=== PATIENT | female | born 1985 | race Caucasian/White ===

== ENCOUNTER → 2017-12-29 | Day surgery (SDC) | payer OTHER ==
[~2017-12-29] MED LIST: HYDROCODONE-AP1 EAC6 PO; JOLIVETTE0.35 MG PO; LEVOXYL25 MCG PO; RANITIDINE 150150 M1 PO; ULTRAM 50MG TAB50 MG PO
[2017-12-29 11:24] LABS: HEMATOCRIT 42.5 % (37.0-47.0); HEMOGLOBIN 14.4 gm/dL (12.0-15.0)
[2017-12-29 11:37] LABS: ALBUMIN 4.3 g/dL (3.4-5.0); DIRECT BILIRUBIN 0.3 mg/dL (<0.1-0.3); TOTAL BILIRUBIN 1.4 mg/dL (<0.1-1.0)
--- NOTE | 2018-01-10 14:36 | OP ---
[address] [address] OPERATIVE REPORT Name: GABRIELA PEREZ Room: [facility]#: [id number] Admission: 12/29/17 Attend Phys: Marija Rogers DO Discharge: Date of : 89 Report #: [id number] THIS REPORT FOR: //name// CC: Marija Chau Primary Care Physician DICTATED BY: Rob Portillo DO DATE OF SERVICE: 12/29/2017 PREOPERATIVE DIAGNOSES: Cholelithiasis and elevated liver function tests and bilirubin. POSTOPERATIVE DIAGNOSES: Chronic cholecystitis, cholelithiasis and elevated liver function tests and bilirubin. SURGEON: Marija Rogers DO CO-SURGEON: Arnold Portillo, PGY-3. SUBMARINE OPERATOR: None. OPERATIONS PERFORMED: Laparoscopic cholecystectomy with intraoperative cholangiogram and interpretation along with liver biopsy. ANESTHESIA TYPE: General and local. ESTIMATED BLOOD LOSS: 20 mL. SPECIMENS: Gallbladder and contents and liver biopsy. COMPLICATIONS: None. COMMENTS: The patient had a rather aberrant anatomy with the cystic artery and Calot node coursing on the lateral side of the cystic triangle. She also had a large aberrant artery that was coursing below the gallbladder. HISTORY OF PRESENT ILLNESS: The patient is a very pleasant 32-year-old female who was in her period at which point she began to have some upper abdominal pain. The patient had extensive workup and was noted to have some elevated LFTs and also had elevated bilirubin with cholelithiasis. Her pain was periodical in nature and would last for short periods of time and then will resolve. Most of her discomfort is localized to her upper abdomen. The patient was seen in the office and it was recommended that she have laparoscopic cholecystectomy for her symptomatic cholelithiasis [place] [address] OPERATIVE REPORT Name: GABRIELA PEREZ Room: [facility].#: [id number] Admission: 12/29/17 Attend Phys: Marija Rogers DO Discharge: Date of : 89 Report #: [id number] that we would recommend her having an intraoperative cholangiogram with elevated bilirubin as well as liver biopsies for the elevated transaminases. The patient voiced complete understanding and after discussing complete description of the procedure as well as risks, benefits, and complications, the patient did agree to proceed. The risks, benefits, and complications of this procedure were discussed and include but are not limited to infection, bleeding, hernias at incision sites, injury to surrounding structures such as stomach, small bowel and common bile duct, chronic pain or numbness at incision sites, prolonged wound healing, anesthesia risks, and other common complications associated with the procedure. The patient voiced complete understanding once again and did wish to proceed. DESCRIPTION OF PROCEDURE: After the appropriate consents were obtained, the patient was taken to the operating room, laid in supine position. She had SCDs placed on bilateral lower extremities and a safety belt placed across her lap. All lines were in place at that time by Anesthesia. Her right arm was tucked to her side and the left arm was left out. The patient was then sedated and intubated by Anesthesia without difficulty. The patient's abdomen was exposed and prepped and draped in a standard sterile fashion. A timeout was performed to correctly identify the patient and procedure. We started with some local anesthetic consisting of 0.5% Marcaine at the infraumbilical site and our presumed incision site. Then, after grasping the skin between two Adson's, we made an infraumbilical incision using a #11 blade scalpel. Any bleeding that was occurring from the dermis was adequately controlled using electrocautery. Then, using blunt dissection with S retractors we were able to dissect down to the anterior abdominal wall fascia. The fascia was grasped and elevated between 2 Maura clamps. The fascia was incised using electrocautery. Using a hemostat we were able to bluntly enter the peritoneum. Using a finger we were able to sweep the incision to ensure there were no angi-incisional adhesions, none were present. We placed two separate 0 Vicryl sutures, tacked as stay sutures on our fascia for our Alcides trocar. The Alcides trocar was introduced into the abdomen and the abdomen was insufflated to 15 mmHg. The Alcides trocar was secured with the previously placed 0 Vicryl sutures. We introduced the camera into the patient's abdominal cavity and did a 4 quadrant inspection. She had a significant amount of omentum, which was overlying her liver and gallbladder, and there were no other obvious abnormal findings. We did place a foot plate at the end of the bed prior to starting the procedure. The patient was then placed in a head up and rotated to the left. We placed a subxiphoid port consistent with 11 mm port and placed it under direct visualization. After this port was placed and using a blunt grasper, we were able to sweep down the omentum and grasp the gallbladder. The gallbladder had some omental adhesions and also had some adhesions to the stomach. Once our gallbladder was in view, we were able to place our two lateral right-sided abdominal ports. These were also placed under direct visualization. Using a locking grasper we were able to grasp and elevate the gallbladder anteriorly and cephalad and this allowed us to expose the inferior aspect of the gallbladder. Using electrocautery and blunt [address] [address] OPERATIVE REPORT Name: PEREZGABRIELA Mar Room: [facility]#: [id number] Admission: 12/29/17 Attend Phys: Marija Rogers DO Discharge: Date of : 89 Report #: [id number] dissections we were able to remove the adhesions without difficulty. Again, using electrocautery and blunt dissection we were able to enter the peritoneum overlying the gallbladder and continue our dissection. The patient had rather aberrant anatomy with a cystic artery as well as the Calot node, which was on the lateral aspect of the gallbladder and she also had a very large artery that was coursing directly below the gallbladder. We ensured to stay far away from this large artery that was coursing below this. Then, grasping Kirk pouch we were able to retract it laterally and dissect out our cystic duct. The duct was rather tortuous in nature and it appeared the gallbladder had actually flopped over onto the cystic duct and was obstructing it. We were able to easily dissect out our cystic duct and artery and there was another branch of the cystic artery which was coursing posteriorly to the gallbladder as well. Once we were able to visualize our necessary structures, specifically the cystic artery and cystic duct, and these were coursing directly into the gallbladder, we were able to visualize the critical view. After our critical view was obtained, we decided to proceed with our intraoperative cholangiogram. We did so using the Brunner clamp. The Brunner clamp was placed on the inferior aspect of the gallbladder and we ensured to completely compress the entire lower side of the gallbladder to prevent reflux. The catheter was then coursed into the superior aspect of the cystic duct and was done so with ease. We aspirated and got a quick return of bile and the catheter flushed easily with normal saline. We then brought in the C-arm and exchanged our saline for 50/50 contrast and saline. We then took a snapshot to ensure our C-arm was in the correct position and then running fluoroscopy we were able to inject the contrast and there was a quick filling of the intrahepatic ducts as well as the extrahepatic ducts. We were obviously in the cystic duct and we could see the contrast coursing into the CBD and then down through the ampulla into the duodenum. There were no obvious filling defects that were visualized during the cholangiogram. We did save pictures of this x-ray, which will be sent to Radiology for further interpretation. Our total fluoroscopy time was approximately 21 seconds. Once we were complete with our cholangiogram, we backed out the C-arm and removed our Brunner clamp. We then placed clips on our cystic duct and cystic artery as well as distal aberrant artery, which was coursing on the lateral side of the gallbladder. We placed 3 clips proximally and 2 clips distally on the cystic duct, 2 clips proximally and 1 clip distally on the cystic artery. Both of these structures were incised using laparoscopic scissors. The gallbladder was then taken off of the liver bed using electrocautery. Any bleeding that was occurring was adequately taken care of using electrocautery. The gallbladder came off the liver bed with ease and it was then placed in an EndoCatch pouch once completely removed. Once the gallbladder was in the EndoCatch pouch, we reinspected our clips as well as our liver bed and there did appear to be hemostasis and there was no active oozing or bleeding from the cystic duct or the cystic artery. It was at this time we decided to obtain our liver biopsies. We used a Brendon-Cut needle to obtain our three separate liver biopsies. Any bleeding that was occurring from the liver at our biopsy sites was adequately hemostased using electrocautery and some direct pressure. [place] [address] OPERATIVE REPORT Name: GABRIELA PEREZ Room: [facility]#: [id number] Admission: 12/29/17 Attend Phys: Marija Rogers DO Discharge: Date of : 89 Report #: [id number] gallbladder fossa as well as Morison pouch thoroughly and suctioned away the fluid until it was running clear. The patient was then flattened out and we suctioned away any free fluid that was remaining. The omentum was placed in its correct anatomical position at the inferior aspect of the liver and we ensured to place some at the cystic plate. The trocars were removed under direct visualization to ensure there was no bleeding and none was present. We allowed the patient's abdomen to desufflate and removed the gallbladder within the EndoCatch pouch through the infraumbilical incision. Using our previously placed 2-0 Vicryl stay sutures, we were able to elevate the fascia and grasp it between 2 Maura clamps. Our previously placed stitches were removed and we placed a single [id number] 0 Vicryl suture to reapproximate the fascia. We did ensure that there were no structures that were stuck up against the anterior abdominal wall before tying down our suture. The skin was closed using an inverted interrupted 4-0 Monocryl suture. We did inject each of the incision sites using 0.5% Marcaine. We did use a total of 50 mL of 0.5% Marcaine. The remainder of the port sites were also closed using inverted interrupted 4-0 Monocryl stitches. The specimens were then allowed to be sent to pathology and the patient's abdomen was then cleaned and dried thoroughly. We placed Mastisol, Steri-Strips, gauze and a sterile Tegaderm OpSite over each of the incisions. The patient tolerated the procedure very well. She was then allowed to awaken and was subsequently extubated in the OR. She was then transferred to her bed and will be returned to the PACU. The patient returned in stable condition and will be discharged home later today. At the end of our procedure our count was correct x 2. Dr. Rogers was present and scrubbed the entirety of the procedure. <ELECTRONICALLY SIGNED> By: Marija Rogers DO 01/10/18 1436 [id number] 1453Cvandana Rogers DO /nt
--- NOTE | 2018-03-22 15:08 | PATH ---
[address] [address] PATHOLOGY RPT PROCEDURE Name: GABRIELA BACK Room: [facility]#: [id number] Admission: 12/29/17 Date of : 89 Discharge: Report #: [id number] Path Case #: [id number] [facility] Accession Number: [id number] . 01 Material submitted: . PART A: GALLBLADDER PART B: LIVER BIOPSY . 01 Clinical history: . Gallstones . 02 Diagnosis: A. Gallbladder: - Chronic cholecystitis, cholesterolosis including cholesterol polyps, and cholelithiasis. . B. Liver biopsy: - Benign liver tissue with scant lobular inflammation. (see comment) QRQ/01/04/2018 . 02 Comment: Multiple core biopsies of the liver (B) show the great majority to be normal liver tissue with very scant scattered lobular inflammation. A panel of properly controlled special stains performed on A1 shows the following results: . PAS with and without diastase: no positive globules Reticulin and trichrome: normal hepatic plates without fibrosis Iron: no stainable increase . The clinical history of elevated liver functions (12/29/17: AST-115, T. bili.-1.4, D. bili.-0.3, alk. phos.-204, ALT-301) is noted. The histologic findings suggest recent injury,possibly related to gallstones or medications. Reviewed with Dr. Marcela Irving. (CHRIS:mgdaphney; 01/04/18) . 02 Electronically signed: . Reggie Bills MD, Pathologist NPI- [id number] . 01 Gross description: . A. Received in formalin labeled "Gabriela Back, gallbladder," is an intact, unopened gallbladder measuring 5.7 x 3.3 x 2.5 cm in greatest dimensions. The serosal surface is smooth to shaggy and dusky blue-goodrich to leon-brown in appearance. Opening the gallbladder reveals a shaggy, dark green mucosa stippled with prominent yellow highlights with a wall thickness of 0.1 cm. Two pale yellow possible [place] [address] PATHOLOGY RPT PROCEDURE Name: GABRIELA BACK Room: [facility]#: [id number] Admission: 12/29/17 Date of : 89 Discharge: Report #: [id number] Path Case #: [id number] mucosal surface, measuring 0.1 and 0.2 cm in maximum dimension and the most proximal polyp extending to within 4.0 cm of the infundibulum. A granular, dark brown sludge is present inside the gallbladder, measuring 2.5 x 1.4 x 0.2 cm in aggregate dimensions and composed of granules measuring less than 0.1 cm each in maximum dimension. No other calculi are present within the specimen or specimen container. The specimen is submitted representatively in cassette A1, to include the infundibulum, possible polyps and sections from the body and fundus. . B. Received in formalin labeled "Gabriela Back, liver biopsy," are three distinct needle cores of leon soft tissue ranging from 1.8 to 2.0 cm in length and measuring 0.1 cm each in diameter. The specimen is submitted entirely in cassette B1. ([facility]; 12/30/2017) XDC/XDC . 02 CPT . 592299, [id number], [id number], [id number], 806974, [id number], [id number] Performed at: [address], [place] [id number] MD Patrick Schuler MD Phone: [phone] Performed at: 02 [facility] [address], [place], [place] [id number] MD Reggie Bills MD Phone: [phone]
== END | disposition home or self-care (01) ==
LOC: M.SUR 08:36
PROVIDERS: Surgery
DX: K80.10 Calculus of gallbladder with chronic cholecystitis without obstruction (principal); R93.2 Abnormal findings on diagnostic imaging of liver and biliary tract; E80.7 Disorder of bilirubin metabolism, unspecified; Z79.899 Other long term (current) drug therapy